=== PATIENT | male | born 1995 | race Caucasian/White ===

== ENCOUNTER 2017-08-30 00:35 | Emergency (ER) | payer OTHER ==
--- NOTE | 2017-08-30 00:51 | ER Report ---
History and Physical Time Seen By MD: 00:46 Hx. of Stated Complaint: playing volleyball and twisted left ankle HPI/ROS CHIEF COMPLAINT: ankle injury HISTORY OF PRESENT ILLNESS: This is a 22 year old male. He was playing volleyball. Jumped and came down wrong on his left foot. From description, sounds like an inversion injury. Lateral pain and swelling, worse with movement and weight bearing. [place] and felt a couple of popping sounds. No prior left ankle problems. Allergies: Coded Allergies: No Known Drug Allergies (Unverified , 08/30/17) Home Meds Active Scripts Hydrocodone Bit/Acetaminophen (HYDROCODON-ACETAMINOPHEN 5-325) 1 Each Tablet, 1 EACH PO Q4H Y for PAIN, #6 TAB 0 Refills Prov:ILIA GARCIA MD 08/30/17 Reviewed Nurses Notes: Yes Hx Smoking: Yes Smoking Status: Never Smoker Exposure to Second Hand Smoke?: No Hx Substance Use Disorder: No Hx Alcohol Use: No Constitutional Vital Sign - Last 24 Hours 08/30/17 08/30/17 08/30/17 08/30/17 00:39 00:45 00:55 01:00 Temp 98.2 Pulse 86 88 98 Resp 18 B/P (MAP) 144/86 128/75 (92) 117/73 (88) Pulse Ox 94 95 94 O2 Delivery Room Air 08/30/17 08/30/17 08/30/17 08/30/17 01:05 01:15 01:25 01:30 Pulse 86 86 87 B/P (MAP) 120/76 (91) 124/72 (89) Pulse Ox 94 95 94 Physical Exam General appearance: Patient is alert. No acute distress. Musculoskeletal: Left ankle shows significant lateral swelling. There is no obvious deformity. No bruising. Medial malleolus is non-tender. Lateral malleolus is tender to palpation with swelling and tenderness just distal to the malleolus as well. Head of the fifth metatarsal is nontender. No tenderness with squeeze of the lower leg or foot. Weight bearing: Weight bearing not tested due to pain. Neurologic: The patient has normal sensation distal to the injury. Active range of motion is intact, but with pain. Cardiovascular: Normal dorsalis pedis and posterior tibialis pulses. Normal capillary refill. Skin: No rash. No skin breakdown. DIFFERENTIAL DIAGNOSIS: After history and physical exam differential diagnosis was considered for ankle injury including sprain, fracture, dislocation and soft tissue injury. Medical Decision Making EKG/Imaging Imaging Exam type: ANKLE 3 VIEW MIN LEFT History: ankle injury, lateral pain and swelling Comparison: None. Findings: There is marked soft tissue swelling around the lateral malleolus but no acute fracture. Ankle mortise aligns appropriately. The hindfoot is unremarkable. A joint effusion is noted. IMPRESSION: 1. Soft tissue swelling around the lateral malleolus but no acute fracture. Report Dictated By: Tim Stevenson MD at 08/30/2017 1:22 AM ED Course/Re-evaluation ED Course reviewed results of imaging with the patient and discussed conservative management of ankle sprain. ARMINDA wrap and crutches provided. Decision to Disposition Date: Aug 30, 2017 Decision to Disposition Time: 01:32 Depart Departure Latest Vital Signs Vital Signs Date Time Temp Pulse Resp B/P (MAP) Pulse Ox O2 Delivery O2 Flow Rate FiO2 08/30/17 01:30 124/72 (89) 08/30/17 01:25 87 94 08/30/17 00:39 98.2 18 Room Air Impression: Primary Impression: Left ankle sprain Condition: Improved Disposition: HOME OR SELF-CARE New Scripts Hydrocodone Bit/Acetaminophen (HYDROCODON-ACETAMINOPHEN 5-325) 1 Each Tablet 1 EACH PO Q4H Y for PAIN, #6 TAB 0 Refills Prov: ILIA GARCIA MD 08/30/17 Patient Instructions: Ankle Sprain (ED) Additional Instructions: Ibuprofen 200mg over the counter tablets, take 4 tablets three times a day with food. Lortab 5/325, one every 4 hours as needed for pain. Apply ice 20 minutes every 1-2 hours while awake. An ARMINDA wrap can be used for compression to help reduce swelling. Rest the injured area, keep it elevated while at rest. Begin gentle range of motion exercises. Off work tomorrow. Problem Qualifiers Primary Impression: Left ankle sprain Encounter type: initial encounter Involved ligament of ankle: unspecified ligament Qualified Codes: S93.402A - Sprain of unspecified ligament of left ankle, initial encounter ILIA GARCIA MD Aug 30, 2017 00:51
--- NOTE | 2017-08-30 01:28 | RADIOLOGY IMAGING REPORT ---
FACILITY: [facility] [place] PATIENT NAME: Carl Swanson : 1995 MR: [id number] V: [id number] EXAM DATE: ORDERING PHYSICIAN: ILIA GARCIA TECHNOLOGIST: Location: [facility] Patient: Carl Swanson : 1995 Visit/Account:[id number] Date of Sevice: 08/30/2017 Exam type: ANKLE 3 VIEW MIN LEFT History: ankle injury, lateral pain and swelling Comparison: None. Findings: There is marked soft tissue swelling around the lateral malleolus but no acute fracture. Ankle mortis e aligns appropriately. The hindfoot is unremarkable. A joint effusion is noted. IMPRESSION: 1. Soft tissue swelling around the lateral malleolus but no acute fracture. Report Dictated By: Tim Stevenson MD at 08/30/2017 1:22 AM Report E-Signed By: Tim Stevenson MD at 08/30/2017 1:23 AM WSN:[id number]
[2017-08-30 01:30] VITALS: BP 124/72
[2017-08-30] MEDS ORDERED: LOR5/325 PO (01:34)
[2017-08-30] MEDS ORDERED: ACET/HYDROC 5/325MG TH ER ONLY 2 TAB/BOTTLE PO ONE (01:35)
== END 2017-08-30 01:46 | disposition home or self-care (01) ==
LOC: ER 00:52
DX: S93.402A Sprain of unspecified ligament of left ankle, initial encounter (principal); Y93.68 Activity, volleyball (beach) (court)
CPT/HCPCS: 99282